=== PATIENT | male | born 1970 | race Caucasian/White ===

== ENCOUNTER 2020-12-19 11:35 | Emergency (ER) | payer OTHER ==
[~2020-12-19] VITALS: Ht 170.2 cm; Wt 109.5 kg
[2020-12-19] MEDS ORDERED: GEOD40CA13 PO (11:45)
[2020-12-19] MEDS ORDERED: WELLTAB38 PO (11:45)
[2020-12-19] MEDS ORDERED: NS 1,000 ML IV SCH (11:45)
[2020-12-19 13:13] VITALS: BP 136/83
== END 2020-12-19 13:28 | disposition home or self-care (01) ==
LOC: M ED 11:35
DX: G89.18 Other acute postprocedural pain (principal); L76.22 Postprocedural hemorrhage of skin and subcutaneous tissue following other procedure; F41.9 Anxiety disorder, unspecified; Z79.899 Other long term (current) drug therapy